=== PATIENT | female | born 2000 | race Caucasian/White ===

== ENCOUNTER 2024-01-28 03:35 | Inpatient (IN) | payer BC ==
[~2024-01-28] VITALS: Ht 172.7 cm; Wt 86.4 kg
[2024-01-28] VITALS (34 sets, daily range): BP systolic 91–131; BP diastolic 51–75; PULSE 56–129; TEMP 98.2–98.9
[2024-01-28] MEDS ORDERED: LR 1,000 ML IV PRN (03:45)
--- NOTE | 2024-01-28 03:45 | NUR ---
PATIENT ARRIVED TO UNIT VIA WHEELCHAIR WITH SPOUSE. STATES HER CONTRACTIONS STARTED AROUND 0100 AND NOTED SOME BLOODY DISCHARGE WHEN WIPING AFTER USING THE RESTROOM. PATIENT DENIES LEAKING OF FLUID. PATIENT CHANGED INTO HOSPTIAL GOWN. [id number].
[2024-01-28] MEDS ORDERED: PRENATAL TABLET PO (03:58)
[2024-01-28] MEDS ORDERED: LR & Oxytocin 500 ML IV SCH (04:15)
[2024-01-28] MEDS ORDERED: LR 1,000 ML IV SCH (04:15)
[2024-01-28 04:28] LABS: BASO # 0.1 K/mm3 (0.0-0.2); BASO % 0.5 % (0.0-2.0); EOS # 0.4 K/mm3 (0.0-0.7); EOS % 4.2 % (0.0-4.0); GRAN # 6.5 K/mm3 (1.4-6.5); GRAN % 65.1 % (42.2-75.2); HEMATOCRIT 39.1 % (37.0-47.0); HEMOGLOBIN 13.5 g/dl (12.5-16.0); LYMPH # 2.1 K/mm3 (1.2-3.4); LYMPH % 21.3 % (20.0-51.0); MEAN CELL VOLUME 86 fl (80.0-100.0); MEAN CORPUSCULAR HEMOGLOBIN 30 pg (27-31); MEAN CORPUSCULAR HGB CONC 35 g/dl (33.0-37.0); MEAN PLATELET VOLUME 12.5 fl (7.4-10.4); MONO # 0.8 K/mm3 (0.1-0.6); MONO % 8.1 % (1.7-9.3); PLATELET COUNT 149 K/mm3 (130-400); RED BLOOD COUNT 4.56 M/mm3 (4.10-5.30); REDCELL DISTRIBUTION WIDTH-CV 13.3 % (11.5-14.5)
[2024-01-28] MEDS ORDERED: ROPivacaine PF 0.2% 200 ML IV ONE (04:32)
--- NOTE | 2024-01-28 04:54 | NUR ---
0430- PATIENT AMBULATORY TO RESTROOM. 0434- PATIENT SITTING ON EDGE OF THE BED. DIFFICULTY TRACING HEART RATE DUE TO MATERNAL POSITION. PULSE OX ON. 0437- JOSE BYRNE AT BEDSIDE. EXPLAINS PROCEDURE TO PATIENT. 0449- TEST DOSE ADMINISTERED BY JOSE BYRNE. 0454- PATIENT REPOSITIONED TO [facility]. PLAN OF CARE EXPLAINED TO PATIENT AND SPOUSE. QUESTIONS INVITED AND ANSWERED.
[2024-01-28] MEDS ORDERED: diphenhydrAMINE 25 MG CAP PO PRN (05:00)
[2024-01-28] MEDS ORDERED: diphenhydrAMINE 50 MG/ML 1 ML VIAL IV PRN (05:00)
[2024-01-28] MEDS ORDERED: Ondansetron 4 MG/2 ML VIAL IV PRN (05:00)
[2024-01-28] MEDS ORDERED: Naloxone 0.4 MG/ML VIAL IV PRN ×3 (05:00→18:15)
[2024-01-28] MEDS ORDERED: ePHEDrine 50 MG/10 ML VIAL IV PRN (05:00)
[2024-01-28] MEDS ORDERED: PROFERRIN ES12 MG PO (05:07)
--- NOTE | 2024-01-28 06:15 | NUR ---
CARE OF PATIENT RECIEVED FROM HEIDE REEVES RN.
--- NOTE | 2024-01-28 08:59 | NUR ---
AT BEDSIDE. SVE: 0. JAYJAY @ [facility]. [facility] STAINED FLUID. FHR TRACING REVIWED. PLAN OF CARE UPDATED.
--- NOTE | 2024-01-28 11:26 | NUR ---
1055 PUSHING EFFORTS INITIATED. 1107 CALLED FOR DELIVERY. 1115 AT BEDSIDE. PATIENT SETUP UP FOR VAGINAL DELIVERY. 1121 OF VIABLE FEMALE INFANT.NUCHAL X1. PLACED ON MOTHER'S ABDOMEN. CARE OF INFANT GIVEN TO NURSERY RN. 1126 SPONTANEOUS VAGINAL DELIVERY OF PLACENTA. PITOCIN BOLUS INITIATED AT 333ML/HR PER POLICY AND PROTOCOL.REPAIR OF VAGINAL AND LABIAL LACERATIONS. FUNDUS FIRM AND BLEEDING WNL.
[2024-01-28] MEDS ORDERED: Magnes Hydrox (MOM) 80 MG/ML 30 ML CUP PO PRN ×2 (12:00→14:15)
[2024-01-28] MEDS ORDERED: Loratadine 10 MG TAB PO PRN ×2 (12:00→14:15)
[2024-01-28] MEDS ORDERED: Mag/Al Hydrox/Simeth Susp 30 ML CUP PO PRN ×2 (14:15→18:15)
[2024-01-28] MEDS ORDERED: Witch Hazel 50% Pads Bulk TUB TP PRN ×2 (14:15→18:15)
[2024-01-28] MEDS ORDERED: Measles/Mumps/Rubella Virus Vaccine Live w Diluent 0.5 ML VIAL SQ SCH ×2 (14:15→18:15)
[2024-01-28] MEDS ORDERED: Ibuprofen 800 MG TAB PO SCH ×2 (14:15→18:15)
[2024-01-28] MEDS ORDERED: Acetaminophen 500 MG TAB PO SCH ×2 (14:15→18:15)
[2024-01-28] MEDS ORDERED: Phenylephrine/Mineral Oil/Petrolatum 57 GM TUBE RC PRN ×2 (14:15→18:15)
--- NOTE | 2024-01-28 15:40 | NUR ---
Pt transfered to bathroom via [employer], voided 500ml without difficulty. Pericare educated and performed. Pt transfered to PP room via [employer]. Oriented to room. Call light at bedside.
[2024-01-28] MEDS ORDERED: Sennosides/Docusate 8.6-50 MG TAB PO SCH ×2 (17:00)
[2024-01-28] MEDS ORDERED: oxyCODONE 5 MG TAB PO PRN (18:15)
[2024-01-28] MEDS ORDERED: traZODone 50 MG TAB PO PRN ×2 (21:00)
[2024-01-29 02:10] VITALS: BP 100/47; PULSE 85; TEMP 98.6
[2024-01-29 06:55] VITALS: BP 101/71; PULSE 88; TEMP 98.3
[2024-01-29] MEDS ORDERED: IBU800 M1 PO (08:41)
[2024-01-29 17:30] VITALS: BP 128/73; PULSE 85; TEMP 99
[2024-01-29 20:00] VITALS: BP 119/74; PULSE 84; TEMP 98.3
[2024-01-30 07:47] VITALS: BP 120/66; PULSE 90
--- NOTE | 2024-01-30 08:03 | NUR ---
DISCHARGE INSTRUCTIONS COMPLETED, HEALTH HISTORY GIVEN, GIFT BAG GIVEN, TALKED ABOUT MAKING 6 WEEK FOLLOW UP AT [facility]. MOTHER VERBALIZES UNDERSTANDING. QUESTIONS INVITED AND ANSWERED.
== END 2024-01-30 08:59 | disposition home or self-care (01) | DRG 560 ==
LOC: LDRO 03:35 → LDR 03:45 → LDRO 04:07 → LDR 04:08 → OB 04:08
PROVIDERS: Obstetrics & Gynecology; ADMIT Obstetrics & Gynecology
PROC: 10E0XZZ Delivery of Products of Conception, External Approach (ICD-10-PCS; principal; 2024-01-28)
PROC: 0KQM0ZZ Repair Perineum Muscle, Open Approach (ICD-10-PCS; 2024-01-28)
DX: O99.02 Anemia complicating childbirth (principal); Z37.0 Single live birth; O70.1 Second degree perineal laceration during delivery; O77.0 Labor and delivery complicated by meconium in amniotic fluid; O69.81X0 Labor and delivery complicated by cord around neck, without compression, not applicable or unspecified; Z3A.38 38 weeks gestation of pregnancy
CPT/HCPCS: J2405; J2590; J2795; J7120

== ENCOUNTER → 2024-05-14 | Outpatient (CLI) | payer BC ==
[~2024-05-14] MED LIST: IBU800 M1 PO; PRENATAL TABLET PO; PROFERRIN ES12 MG PO
== END ==
LOC: COL.RAD 15:23
DX: R74.8 Abnormal levels of other serum enzymes (principal)